=== PATIENT | male | born 1990 | race American Indian/Alaskan Native ===

== ENCOUNTER 2021-08-04 12:24 | Outpatient (CLI) | payer BC ==
--- NOTE | 2021-08-04 14:14 | XRay Report ---
XR chest routine 2V INDICATION / CLINICAL INFORMATION: SHORTNESS OF BREATH COMPARISON: None available. FINDINGS: SUPPORT DEVICES: None. HEART / MEDIASTINUM: No significant abnormality. LUNGS / PLEURA: Lungs are clear. Costophrenic sulci are sharp. No pneumothorax. ADDITIONAL FINDINGS: No significant additional findings. IMPRESSION: 1. No acute findings. Signer Name: Miguel Valiente MD Signed: 08/04/2021 2:08 PM Workstation Name: [id number]
== END 2021-08-04 12:25 | disposition home or self-care (01) ==
LOC: XRAY 12:24
PROVIDERS: ATTEND Internal Medicine
DX: R06.02 Shortness of breath (principal)
CPT/HCPCS: 71046